=== PATIENT | female | born 1940 | race Caucasian/White ===

== ENCOUNTER 2017-05-24 06:42 | Day surgery (SDC) | payer MEDICARE, OTHER ==
[2017-05-24] MEDS ORDERED: LIDOCAINE 4% SOLUTION 50 ML BTL (08:16)
[2017-05-24] MEDS ORDERED: MIDAZOLAM 1 MG/ML 2 ML INJ (08:48)
[2017-05-24] MEDS ORDERED: FENTAnyl 50 MCG/ML VIAL (08:48)
== END 2017-05-24 10:46 | disposition home or self-care (01) ==
LOC: GIL 06:42
DX: R12 Heartburn (principal); K29.50 Unspecified chronic gastritis without bleeding; K31.7 Polyp of stomach and duodenum; I10 Essential (primary) hypertension
CPT/HCPCS: 43239; 88305; 88312; 88313

== ENCOUNTER 2018-09-07 09:07 | Day surgery (SDC) | payer MEDICARE, OTHER ==
[2018-09-07] MEDS ORDERED: SOD CHLORIDE 0.9% 1,000 ML IV (11:00)
[2018-09-07] MEDS ORDERED: ONDANSETRON 4 MG INJ (12:45)
[2018-09-07] MEDS ORDERED: ROCURONIUM 50 MG INJ (12:45)
[2018-09-07] MEDS ORDERED: PROPOFOL 20 ML (12:45)
[2018-09-07] MEDS ORDERED: GLYCOPYRROLATE 0.4 MG INJ (12:45)
[2018-09-07] MEDS ORDERED: NEOSTIGMINE 3 MG/3 ML SYRINGE (12:45)
[2018-09-07] MEDS ORDERED: MIDAZOLAM 1 MG/ML 2 ML INJ (12:45)
[2018-09-07] MEDS ORDERED: CEFAZOLIN 1 GM INJ (12:45)
[2018-09-07] MEDS ORDERED: FENTAnyl 50 MCG/ML VIAL (12:45)
[2018-09-07] MEDS ORDERED: DEXAMETHASONE 4 MG/ML 5 ML INJ (12:46)
[2018-09-07] MEDS ORDERED: ROPIVACAINE 0.5 % 30 ML VIAL (12:46)
[2018-09-07] MEDS ORDERED: DIPHENHYDRAMINE 50 MG INJ IV (13:30)
[2018-09-07] MEDS ORDERED: OXYCODONE/ACETAMINOPHEN (5/325) TAB PO ×2 (13:30)
[2018-09-07] MEDS ORDERED: IPRATROPIUM (NEB) 0.5 MG/2.5 ML AMP HHN (13:30)
[2018-09-07] MEDS ORDERED: hydrALAzine 20 MG INJ IV (13:30)
[2018-09-07] MEDS ORDERED: MEPERIDINE 25 MG INJ IV (13:30)
[2018-09-07] MEDS ORDERED: HYDROmorphONE 1 MG/5 ML IV SYRINGE IV ×2 (13:30)
[2018-09-07] MEDS ORDERED: TRIMETHOBENZAMIDE 100 MG/ML VIAL IM (13:30)
[2018-09-07] MEDS ORDERED: EPHEDrine 25 MG/5 ML SYG IV (13:30)
[2018-09-07] MEDS ORDERED: FENTAnyl 50 MCG/ML VIAL IV ×3 (13:30)
[2018-09-07] MEDS ORDERED: LABETALOL HCL 20MG INJ IV (13:30)
[2018-09-07] MEDS ORDERED: ALBUTEROL 0.083% (NEB) 2.5 MG/3 ML AMP HHN (13:30)
[2018-09-07] MEDS ORDERED: MIDAZOLAM 1 MG/ML 2 ML INJ IV (13:30)
[2018-09-07] MEDS: POLYMYXIN/BACITRACIN 1L IRRIG (14:15)
[2018-09-07] MEDS: HYDROmorphONE 1 MG/5 ML IV SYRINGE IV (15:33)
[2018-09-07] MEDS: ONDANSETRON 4 MG INJ IV (15:33)
== END 2018-09-07 17:14 | disposition home or self-care (01) ==
LOC: SDS 09:07
DX: S92.351A Displaced fracture of fifth metatarsal bone, right foot, initial encounter for closed fracture (principal); I10 Essential (primary) hypertension; E11.9 Type 2 diabetes mellitus without complications; K21.9 Gastro-esophageal reflux disease without esophagitis; X58.XXXA Exposure to other specified factors, initial encounter
CPT/HCPCS: 28485; 73620; 73630; 82962